=== PATIENT | female | born 1940 | race Caucasian/White ===

== ENCOUNTER → 2021-04-04 | Outpatient (CLI) | payer OTHER | END | disposition home or self-care (01) | LOC: CARD 09:17 | PROVIDERS: ATTEND Nurse Practitioner Family | DX: I35.1 Nonrheumatic aortic (valve) insufficiency (principal); I10 Essential (primary) hypertension; Z79.899 Other long term (current) drug therapy ==

== ENCOUNTER → 2021-04-07 | Outpatient (CLI) | payer OTHER | END | disposition home or self-care (01) | LOC: CARD 10:28 | PROVIDERS: ATTEND Nurse Practitioner Family | DX: I45.10 Unspecified right bundle-branch block (principal); I10 Essential (primary) hypertension ==

== ENCOUNTER → 2021-06-13 | Outpatient (CLI) | payer OTHER | END | disposition home or self-care (01) | LOC: CARD 06-02 14:00 | PROVIDERS: ATTEND Internal Medicine Cardiovascular Disease | DX: I35.1 Nonrheumatic aortic (valve) insufficiency (principal) ==

== ENCOUNTER 2022-04-28 11:06 | Emergency (ER) | payer OTHER ==
[~2022-04-28] VITALS: Ht 170.1 cm; Wt 65.8 kg
[2022-04-28] MEDS ORDERED: ZOLOFT50 MG PO (11:45)
[2022-04-28] MEDS ORDERED: LIPITOR10 MG PO (11:45)
[2022-04-28] MEDS ORDERED: LISINOPRIL10 M1 PO ×2 (11:45→12:47)
[2022-04-28] MEDS ORDERED: ASPIRIN81 M1 PO (12:48)
[2022-04-29] MEDS ORDERED: LISINOPRIL20 MG PO (22:10)
== END 2022-04-28 13:26 | disposition home or self-care (01) ==
LOC: ED 11:06
DX: I10 Essential (primary) hypertension (principal); Z79.899 Other long term (current) drug therapy; Z79.82 Long term (current) use of aspirin

== ENCOUNTER 2022-04-29 20:33 | Emergency (ER) | payer OTHER ==
[~2022-04-29] VITALS: Ht 162.5 cm; Wt 67.6 kg
[~2022-04-29 20:33] MED LIST: ASPIRIN81 M1 PO; LIPITOR10 MG PO; LISINOPRIL10 M1 PO; ZOLOFT50 MG PO
[2022-04-29 21:47] LABS: BASO # 0.1 10*3/uL (0.0-0.1); BASO % 0.7 % (0.0-1.0); EOS # 0.1 10*3/uL (0.0-0.4); EOS % 0.8 % (1.0-4.0); HEMATOCRIT 42.8 % (37.0-47.0); LYMPH % 27.5 % (27.0-41.0); MEAN CELL VOLUME 86.8 fl (81.0-99.0); MEAN CORPUSCULAR HGB 29.4 pg (27.0-31.0); MEAN CORPUSCULAR HGB CONC 33.9 g/dl (33.0-37.0); MEAN PLATELET VOLUME 9.7 fl (9.6-12.3); MONO # 0.9 10*3/uL (0.1-1.0); MONO % 12.1 % (3.0-9.0); NEUT # 4.2 10*3/uL (2.3-7.9); NEUT % 58.6 % (47.0-73.0); PLATELET COUNT AUTOMATED 184 10*3/uL (130-400); RED BLOOD COUNT 4.93 10*6/uL (4.10-5.10); RED CELL DISTRI WIDTH 12.2 % (0-14.5); WHITE BLOOD COUNT 7.1 10*3/uL (4.8-10.8)
[2022-04-29 22:02] LABS: ALKALINE PHOSPHATASE 69 U/L (45-117); BUN 24 mg/dl (7-24); CHLORIDE 104 mmol/L (98-107); CREATININE 0.91 mg/dL (0.55-1.02); POTASSIUM 3.8 mmol/L (3.5-5.1); SGPT/ALT 22 U/L (12-78); SODIUM 138 mmol/L (136-145); TOTAL PROTEIN 6.8 gm/dL (6.4-8.2)
[2022-04-29] MEDS ORDERED: LISINOPRIL20 MG PO (22:10)
== END 2022-04-29 23:15 | disposition home or self-care (01) ==
LOC: ED 20:33
PROVIDERS: Nurse Practitioner Family
DX: I10 Essential (primary) hypertension (principal); Z79.899 Other long term (current) drug therapy; Z79.82 Long term (current) use of aspirin

== ENCOUNTER → 2024-02-07 | Outpatient (CLI) | payer MEDICARE ==
[~2024-02-07] MED LIST changes: +LISINOPRIL20 MG PO
== END | disposition home or self-care (01) ==
LOC: CARD 14:12
PROVIDERS: ATTEND Internal Medicine Cardiovascular Disease
DX: I08.0 Rheumatic disorders of both mitral and aortic valves (principal)